=== PATIENT | male | born 1945 | race Caucasian/White ===

== ENCOUNTER 2025-06-20 07:45 | Outpatient (CLI) | payer MEDICARE, OTHER ==
[2025-06-20 08:26] LABS: Hematocrit 41.3 % (38.8-50.0); Hemoglobin 13.2 g/dL (13.5-17.5); Mean Corpuscular Hemoglobin 27.6 pg (27.0-33.0); Mean Corpuscular Volume 86.2 fL (81.2-95.1); Platelet Count 229 10x3/uL (150-450); Red Blood Cell (RBC) Count 4.79 10x6/uL (4.32-5.72); White Blood Cell (WBC) Count 15.35 10x3/uL (3.5-10.5)
[2025-06-20 08:42] LABS: INR-International Normal Ratio 1.1; PTT 35.4 sec (22.0-33.0); Prothrombin Time 11.9 sec (9.5-12.1)
[2025-06-20 08:44] LABS: Anion Gap 13 mmol/L (10-20); BUN (Urea Nitrogen) 21 mg/dL (8.4-25.7); Calc. Creatinine Clearance 0 mL/min (70-130); Calcium 9.9 mg/dL (7.8-10.44); Carbon Dioxide 25 mmol/L (23-31); Chloride 103 mmol/L (98-107); Glucose 91 mg/dL (83-110); Potassium 4.6 mmol/L (3.5-5.1); Sodium 136 mmol/L (136-145)
== END 2025-06-20 07:46 | disposition home or self-care (01) ==
LOC: CSHLAB 07:45
PROVIDERS: ATTEND Internal Medicine Cardiovascular Disease
DX: Z01.812 Encounter for preprocedural laboratory examination (principal); I49.5 Sick sinus syndrome; I48.19 Other persistent atrial fibrillation
CPT/HCPCS: 80048; 85027; 85610; 85730

== ENCOUNTER → 2025-06-24 | Day surgery (SDC) | payer MEDICARE, OTHER ==
[~2025-06-24] MED LIST: CEFAZOLIN 1 GM VIAL ONE; Etomidate 40 MG (20 mL) VIAL ONE; Lidocaine 1% (PF) 30 ML VIAL ONE; Lidocaine 1% PF 5 ML VIAL ONE
[2025-06-24 07:15] VITALS: BP 149/87; TEMP 97.9
== END | disposition home or self-care (01) ==
LOC: CSHSDC 06:22
PROVIDERS: ATTEND Internal Medicine Cardiovascular Disease
PROC: 0JH606Z Insertion of Pacemaker, Dual Chamber into Chest Subcutaneous Tissue and Fascia, Open Approach (ICD-10-PCS; principal; 2025-06-24)
PROC: 02H63JZ Insertion of Pacemaker Lead into Right Atrium, Percutaneous Approach (ICD-10-PCS; 2025-06-24)
PROC: 02HK3JZ Insertion of Pacemaker Lead into Right Ventricle, Percutaneous Approach (ICD-10-PCS; 2025-06-24)
DX: I49.5 Sick sinus syndrome (principal); I48.19 Other persistent atrial fibrillation; I10 Essential (primary) hypertension; I25.10 Atherosclerotic heart disease of native coronary artery without angina pectoris; E78.5 Hyperlipidemia, unspecified; Z79.01 Long term (current) use of anticoagulants; Z79.899 Other long term (current) drug therapy
CPT/HCPCS: 33208; 71045; 93005; C1785; C1898 ×2; J0690; J1580; 93010